=== PATIENT | male | born 1985 | race African-American/Black ===

== ENCOUNTER 2019-01-18 21:19 | Emergency (ER) | payer SELFPAY ==
[~2019-01-18] VITALS: Ht 172.7 cm; Wt 87.0 kg
[2019-01-18] MEDS ORDERED: MORPHINE SULFATE 4 MG/ML CPJ (NOT FOR IM USE) IV STA (23:00)
[2019-01-18] MEDS ORDERED: ONDANSETRON HCL 4MG/2ML INJ IV STA (23:00)
[2019-01-18] MEDS ORDERED: SODIUM CHLORIDE 0.9% 1,000 ML IV ONE (23:00)
[2019-01-18 23:09] LABS: BASOPHILS % 0.5 % (0.0-2.0); EOSINOPHILS % 0.8 % (0.0-5.0); HEMATOCRIT. 41.5 % (42.0-52.0); HEMOGLOBIN. 13.6 g/dL (14.0-18.0); LYMPHOCYTES % 21.8 % (20.0-50.0); MEAN CORPUSCULAR HEMOGLOBIN 28.1 pg (28.0-32.0); MEAN CORPUSCULAR VOLUME 85.4 fL (80.0-94.0); MEAN PLATELET VOLUME 8.9 fl (7.4-10.4); MONOCYTES % 7.9 % (2.0-8.0); PLATELET 229 x1000/uL (130-400); RED BLOOD CELL COUNT 4.86 mill/uL (4.7-6.1); RED CELL DISTRIBUTION WIDTH 13.5 % (11.6-14.6)
[2019-01-18 23:12] LABS: CHLORIDE 105 mEq/L (98-107)
[2019-01-18 23:15] LABS: ETHANOL BLOOD < 10 mg/dL
[2019-01-19 00:47] LABS: *AMPHETAMINES SCREEN URINE NEGATIVE (NEGATIVE); *BARBITURATES SCREEN URINE NEGATIVE (NEGATIVE); *BENZODIAZEPINES SCREEN URINE NEGATIVE (NEGATIVE)
[2019-01-19 00:48] LABS: *COCAINE SCREEN URINE NEGATIVE (NEGATIVE); CANNABINOID URINE SCREEN PRESUMTIVE POSITIVE (NEGATIVE); METHADONE URINE SCREEN NEGATIVE (NEGATIVE); OPIATES URINE SCREEN PRESUMTIVE POSITIVE (NEGATIVE); PHENCYCLIDINE URINE SCREEN NEGATIVE (NEGATIVE)
[2019-01-19 02:17] VITALS: BP 110/69
== END 2019-01-19 02:20 | disposition home or self-care (01) ==
LOC: EDSEX 21:19 → ER 21:19
DX: R41.82 Altered mental status, unspecified (principal); R51 Headache; J45.909 Unspecified asthma, uncomplicated; F17.210 Nicotine dependence, cigarettes, uncomplicated; F12.10 Cannabis abuse, uncomplicated
CPT/HCPCS: 36415; 70450; 71045; 80053; 80305; 80320; 85025; 93005; 96361; 96374; 96375; 99284; 99406; J2270; J2405; J7030; Z7610; G0480